=== PATIENT | female | born 1965 | race Caucasian/White ===

== ENCOUNTER → 2021-07-05 00:48 | Outpatient (CLI) | payer BC, SELFPAY ==
[2021-07-05 11:57] LABS: Influenza A QL RT-PCR Negative (Negative); Influenza B QL RT-PCR Negative (Negative); SARS-CoV-2 RNA PCR Negative
== END ==
PROVIDERS: PCP Internal Medicine; Visit Provider Internal Medicine
DX: R09.89 Other specified symptoms and signs involving the circulatory and respiratory systems (principal); Z20.822 Contact with and (suspected) exposure to COVID-19
CPT/HCPCS: 87502; C9803; U0003; U0005

== ENCOUNTER 2022-09-11 10:20 | Outpatient (NON) | payer BC, SELFPAY | END 2022-09-11 10:21 | disposition home or self-care (01) | PROVIDERS: Visit Provider Nurse Practitioner | DX: L81.4 Other melanin hyperpigmentation (principal); D23.9 Other benign neoplasm of skin, unspecified | CPT/HCPCS: 88305 ==